=== PATIENT | male | born 1975 | race Caucasian/White ===

== ENCOUNTER 2023-09-13 09:17 | Emergency (ER) | payer BC, MEDICAID, SELFPAY ==
--- NOTE | 2023-09-13 09:20 | XR_ITS ---
WS: [id number] Exam: XR finger LT min 2V [id number] Date/Time of Exam: 09/13/2023 9:42 AM Reason For Exam: thumb; fb nail The thumb is targeted for radiographic evaluation. No fracture or bony injury identified. Soft tissue injury in the web between the first and second fin gers. IMPRESSION: 1. Soft tissue injury noted. No fracture or bony injury identified.
--- NOTE | 2023-09-13 09:21 | W.ED.UPPEXIN ---
HPI - Extremity Injury (Upper) General: Chief Complaint: Skin/Abscess/Foreign Body Stated Complaint: left hand injury,nail in thumb Time Seen by Provider: 09/13/23 09:18 Source: patient Mode of arrival: ambulatory Limitations: no limitations History of Present Illness: Patient is a nice 48-year-old male who presents to ED today for evaluation and treatment of a nail in his left thumb. Patient states he was building a house and using a nail gun when he accidentally dislodged a nail into his left volar thumb. Last tetanus is unknown. MD complaint: injury to: left and finger Onset (ago): hour(s) Other Extremity Injury: Left: fingers Other injuries: none Place: work Severity: moderate Relieving factors: none Exacerbating factors: none Context: other (puncture wound/foreign body) Associated symptoms: Reports no associated symptoms Review of Systems Musc: Reports: extremity pain (L thumb) Skin/Breast: Reports: other (foreign body/nail puncture to L thumb) Neuro: Denies: numbness in extremities or sensory changes Physical Exam Const: COMMON NORMALS: no acute distress, average body habitus, patient oriented x3, no limitations, healthy appearing, alert and well nourished Extremity: COMMON NORMALS: capillary refill normal GENERAL: Yes normal exam except as noted LEFT UPPER EXTREMITY: Yes hand & digits (foreign body/nail to L thumb) Left hand and digits: Yes neurovascular exam (normal) Hand Left Front: 1. framing nail foreign body to volar surface of L thumb; appears fairly superficial and does not appear to penetrate bone. Bleeding controlled. Minimal swelling. NV intact Neuro: COMMON NORMALS: patient oriented x3, moves all extremities, no focal motor deficits and no sensory deficits noted SENSORIUM/ORIENTATION: Yes alert Skin: NARRATIVE SKIN EXAM: puncture wound L thumb; otherwise normal exam Procedures Foreign Body Removal Site: left and hand (thumb) Description of foreign body: other (nail) Sedation/Analgesia: none Technique: manual removal Confirmed by:: direct visualization and radiograph Complications: none Neurovascular: normal distal pulse, normal capillary fill, distal light touch sensation intact, distal motor function normal and no signs of compartment syndrome Course Vital Signs: Vital signs: Vital Signs Temperature 98.1 F 09/13/23 09:24 Pulse Rate 76 09/13/23 09:36 Respiratory Rate 18 09/13/23 09:24 Blood Pressure 168/115 09/13/23 09:36 Pulse Oximetry 96 09/13/23 09:36 Oxygen Delivery Me thod Room Air 09/13/23 09:36 MDM - Extremity Injury (Upper) Medical Decision Making XR negative for bony injury. Nail was easily removed here and puncture sites were copiously irrigated. Tetanus was updated. He was given 1g IM Ancef. Wound dressed and he will be placed on antibiotics and given pain medication. Will have him follow up with orthopedics to make sure there was no tendon/nerve damage to digit/thumb. 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 Infection precautions discussed with patient. Medical Records I reviewed the patient's medical records. All radiology interpretation(s) finalized by discharge Discharge Plan Discharge Patient Disposition: Home Clinical Impression: Foreign body of skin of left thumb Condition: Stable Prescriptions: New tramadol 50 mg tablet 50 mg PO Q6H PRN (Reason: pain) Qty: 14 0RF cephalexin 500 mg capsule 500 mg PO Q6H 7 Days Qty: 28 0RF Discharge Orders: Discharge ED (Routine); Ordered 09/13/23 Ordered By: Poonam Yusuf Referrals: Jose Maria Joy MD [Primary Care Provider] - Patient Instructions: Soft Tissue Foreign Body (ED), Puncture Wound (DC), Opioid Safety, Pain Management Activity Restrictions/Additional Instructions: As we discussed continue to keep wound clean multiple times daily with warm soapy water. Fill and begin your antibiotics immediately. You may take pain medication as needed for severe pain. If [id number] medications control your discomfort I would recommend using these instead. Monitor for signs of infection such as redness, warmth, red streaking up your hand or arm, fevers, purulent drainage, worsening swelling, or increased pain. Please seek medical re-evaluation if these occur. We will have you follow-up with orthopedics. Case management should reach out to you this week to set you up with this appointment. Your medications have been escripted to [facility] pharmacy. 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
[2023-09-13 09:24] VITALS: BP 202/129; PULSE 85; RESP 18; TEMP 36.7; O2SAT 97
[2023-09-13 09:36] VITALS: BP 168/115; PULSE 76; O2SAT 96
[2023-09-13] MEDS: tetanus-dipt-pertussis 0.5 mL SDV IM (09:48)
[2023-09-13] MEDS: ceFAZolin 1,000 MG in water for injection-sterile 2.5 ML 0.01 MG IM (10:00)
[2023-09-13 10:02] VITALS: BP 170/115; PULSE 73; O2SAT 95
--- NOTE | 2023-09-13 10:03 | DCPLANNER ---
Message sent to ot=rtho for a follow up of lt thumb nail removal-
== END 2023-09-13 10:06 | disposition home or self-care (01) ==
PROVIDERS: Emergency Provider Physician Assistant; PCP Family Medicine
DX: S61.042A Puncture wound with foreign body of left thumb without damage to nail, initial encounter (principal); W29.4XXA Contact with nail gun, initial encounter; Z23 Encounter for immunization
CPT/HCPCS: 73140; 90471; 90715; 96372; 99284; J0690

== ENCOUNTER 2025-05-02 23:07 | Emergency (ER) | payer BC, MEDICAID, SELFPAY ==
[2025-05-02 23:14] VITALS: BP 192/125; PULSE 97; RESP 19; O2SAT 97
[2025-05-02 23:54] LABS: Hematocrit 41.9 % (37-53); Hemoglobin 14.30 g/dL (11.27-16.99); Mean Corpuscular HGB Conc 34.1 g/dL (30-55); Mean Corpuscular Hemoglobin 29.6 pg (27-33); Mean Corpuscular Volume 86.7 fl (82-101); Nucleated Red Blood Cells % 0 %; Platelet Count 229 10^3/cmm (157-399); Red Blood Count 4.83 10^6/uL (3.85-5.65); White Blood Count 7.62 10^3/uL (3.29-11.43)
[2025-05-03 00:06] LABS: INR 0.91 (0.8-1.2); Prothrombin Time 13.00 SECONDS (12.1-14.9)
[2025-05-03 00:07] LABS: Partial Thromboplastin Time 28.9 SECONDS (23.9-36.7)
--- NOTE | 2025-05-03 00:08 | ED_ITS ---
HPI - Wound/Laceration 2 General: Chief Complaint: Wound/Laceration Stated Complaint: post surg bleeding severe Time Seen by Provider: 05/02/25 23:11 History of Present Illness: 49-year-old male who had mouth surgery a bout a week ago. 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 It sounds like it was a fairly complicated procedure and he has some grafting implant devices. He had a cough this evening and started having some bleeding. They came immediately here. He has gauze on it and it appears to stop bleeding. Related Data Previous Rx's ?Medication ?Instructions ?Recorded tramadol 50 mg tablet 50 mg PO Q6H PRN pain #14 ta bs 09/13/23 Allergies Allergy/AdvReac Type Severity Reaction Status Date / Time No Known Allergies Allergy Verified 09/13/23 09:43 Review of Systems 2 Narrative: Constitutional symptoms: Negative except as documented in HPI. Skin symptoms: Negative except as documented in HPI. Eye symptoms: Negative except as documented in HPI. ENMT symptoms: Negative except as documented in HPI. Respiratory symptoms: Negative except as documented in HPI. Cardiovascular symptoms: Negative except as documented in HPI. Gastrointestinal symptoms: Negative except as documented in HPI. Genitourinary symptoms: Negative except as documented in HPI. Musculoskeletal symptoms: Negative except as documented in HPI. Neurologic symptoms: Negative except as documented in HPI. Psychiatric symptoms: Negative except as documented in HPI. Endocrine symptoms: Negative except as documented in HPI. Physical Exam 2 Narrative: EXAM NARRATIVE: General: Alert, no acute distress. Skin: warm and dry Head: Normocephalic Neck: Trachea midline Eye: Extraocular movements are intact. Ears, nose, mouth and throat: Oral mucosa moist Respiratory: Respirations are non-labored Musculoskeletal: Normal ROM Gastrointestinal: Abdomen does not appear distended Neurological: Alert and oriented, No focal neurological deficit observed. Psychiatric: Cooperative, appropriate mood & affect. Course 2 Vital Signs: Vital signs: Vital Signs Pulse Rate 97 05/02/25 23:14 Respiratory Rate 19 H 05/02/25 23:14 Blood Pressure 192/125 05/02/25 23:14 Pulse Oximetry 97 05/02/25 23:14 Oxygen Delivery Me thod Room Air 05/02/25 23:14 MDM - Wound/Laceration Medical Decision Making Medical decision making: Differential diagnosis including but not limited to and based on the above HPI, review of systems and physical exam: We will check some basic lab work to check his hemoglobin and his coags while I wait for pressure to achieve hemostasis. Orders placed to evaluate differential diagnosis based on the above differential, HPI and physical exam Lab Review: Laboratory results were reviewed and interpreted by myself the emergency room physician. No leukocytosis. No anemia. No renal failure. Coags are normal. I reviewed the patient's medical record. Reexamination: Patient remove the gauze and I evaluated his mouth. Definitely appears postsurgical and I do not see any active bleeding at this time. We discussed following up with his surgeon as soon as possible. Assessment and plan: Postop bleeding - Discharged home - Discussed plan with patient. Answered any questions. - Evaluation and treatment of this problem were appropriate in the emergency setting. Lab Data 05/02/25 23:46 05/02/25 23:46 Laboratory Results WBC 7.62 10^3/uL (3.29-11.43) 05/02/25 23:46 RBC 4.83 10^6/uL (3.85-5.65) 05/02/25 23:46 Hgb 14.30 g/dL (11.27-16.99) 05/02/25 23:46 Hct 41.9 % (37-53) 05/02/25 23:46 MCV 86.7 fl (82-101) 05/02/25 23:46 MCH 29.6 pg (27-33) 05/02/25 23:46 MCHC 34.1 g/dL (30-55) 05/02/25 23:46 RDW 13.0 % (12.1-15.1) 05/02/25 23:46 Plt Count 229 10^3/cmm (157-399) 05/02/25 23:46 MPV 9.6 fL (7.4-10.4) 05/02/25 23:46 Neut % (Auto) 59.4 % 05/02/25 23:46 Lymph % (Auto) 23.8 % 05/02/25 23:46 Pleasants % (Auto) 10.9 % 05/02/25 23:46 Eos % (Auto) 4.5 % 05/02/25 23:46 Baso % (Auto) 0.9 % 05/02/25 23:46 Neut # (Auto) 4.53 10^3/uL (1.8-7.7) 05/02/25 23:46 Lymph # (Auto) 1.8 10^3/uL (0.8-4.8) 05/02/25 23:46 Pleasants # (Auto) 0.8 10^3/uL (0.2-0.9) 05/02/25 23:46 Eos # (Auto) 0.3 10^3/uL (0.0-0.8) 05/02/25 23:46 Baso # (Auto) 0.1 10^3/uL (0.0-0.1) 05/02/25 23:46 Nucleated RBC % (auto) 0 % 05/02/25 23:46 Nucleated RBCs # 0.0 /100WBC 05/02/25 23:46 PT 13.00 SECONDS (12.1-14.9) 05/02/25 23:46 INR 0.91 (0.8-1.2) 05/02/25 23:46 APTT 28.9 SECONDS (23.9-36.7) 05/02/25 23:46 Sodium 137 mmol/L (136-145) 05/02/25 23:46 Potassium 3.8 mmol/L (3.5-5.1) 05/02/25 23:46 Chloride 97 mmol/L (98-107) L 05/02/25 23:46 Carbon Dioxide 28 mmol/L (22-29) 05/02/25 23:46 Anion Gap 15.8 (5-19) 05/02/25 23:46 BUN 23 mg/dL (6-20) H 05/02/25 23:46 Creatinine 1.0 mg/dL (0.7-1.2) 05/02/25 23:46 GFR Calculation 80.1 mL/min (90-130) L 05/02/25 23:46 Glucose 107 mg/dL (65-115) 05/02/25 23:46 Calculated Osmolality 288 mOsm/kg (285-295) 05/02/25 23:46 Calcium 9.3 mg/dL (8.5-10.5) 05/02/25 23:46 Total Bilirubin 0.6 mg/dL (0.15-1.2) 05/02/25 23:46 AST 15 U/L (0-40) 05/02/25 23:46 ALT 26 U/L (0-41) 05/02/25 23:46 Alkaline Phosphatase 75 U/L (40-130) 05/02/25 23:46 Total Protein 7.2 g/dL (6.6-8.7) 05/02/25 23:46 Albumin 4.0 g/dL (3.5-5.2) 05/02/25 23:46 Globulin 3.2 g/dL (1.3-4.6) 05/02/25 23:46 No radiology studies performed this visit Discharge Plan Discharge Patient Disposition: Home Clinical Impression: Post-op bleeding Condition: Stable Prescriptions: No Action tramadol 50 mg tablet 50 mg PO Q6H PRN (Reason: pain) Qty: 14 0RF Discharge Orders: Discharge ED (Routine); Ordered 05/03/25 Ordered By: Melissa Horner Referrals: Waldemar Edward DO [Primary Care Provider, [facility]] Discharge Diet: Usual diet Discharge Activity: Increase activity as tolerated Patient Instructions: Opioid Safety, Pain Management, Patient Portal & Jeff Instructions Activity Restrictions/Additional Instructions: Thank you for choosing [facility] for your healthcare needs today. You have been screened and evaluated and felt safe for discharge. Health conditions do change or evolve sometimes and as such it is important that you follow up with your Primary Doctor to be re checked, 3-5 days is a general good time frame for follow up. 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
[2025-05-03 00:11] LABS: Alanine Aminotransferase 26 U/L (0-41); Albumin Level 4.0 g/dL (3.5-5.2); Alkaline Phosphatase 75 U/L (40-130); Anion Gap 15.8 (5-19); Aspartate Amino Transferase 15 U/L (0-40); Blood Urea Nitrogen 23 mg/dL (6-20); Calcium 9.3 mg/dL (8.5-10.5); Carbon Dioxide 28 mmol/L (22-29); Chloride 97 mmol/L (98-107); Globulin 3.2 g/dL (1.3-4.6); Glucose 107 mg/dL (65-115); Osmolality Calculated 288 mOsm/kg (285-295); Potassium 3.8 mmol/L (3.5-5.1); Sodium 137 mmol/L (136-145); Total Protein 7.2 g/dL (6.6-8.7)
[2025-05-03 00:48] VITALS: BP 182/116; PULSE 65; RESP 18; O2SAT 96
--- OUTSIDE RECORDS SUMMARY | 2025-05-03 07:36 | XMS_ITS | Encounter Summary ---
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 Gender Identity Not on file Sexual Orientation Not on file documented as of this encounter Plan of Treatment Not on file documented as of this encounter Procedures Procedure Name Priority Date/Time Associated Diagnosis Comments LIPID PANEL Routine 01/23/2008 9:15 AM CDT documented in this encounter Results * LIPID PANEL (01/23/2008 9:15 AM CDT) GLUCOSE 89 70 - 110 mg/dL [facility] HDL 48 40 - 60 mg/dL [facility] CALCULATED LDL CHOLESTEROL 112 0 - 130 mg/dL [facility] TRIGLYCERIDE 54 0 - 168 mg/dL [facility] CALCULATED TOTAL CHOLESTEROL TO HDL RATIO 3.56 3.43 - 4.97 [facility] CHOLESTEROL 171 75 - 200 mg/dL [facility] Blood specimen (specimen) 01/23/2008 9:15 AM CDT 01/23/2008 3:10 PM CDT us Steven Garner MD CHEMISTRY ORDERABLES Final Res ult Performing Organization Address City/State/[facility] Co de Phone Number [facility] [address] [place] [address] documented in this encounter Visit Diagnoses Not on filedocumented in this encounter Care Teams Home Health Occupational Therapist Relationship Specialty Start Date End Date Jose Maria Joy MD [address] [place] [id number] PCP - General Family Practice 04/08/11 documented as of this encounter
--- OUTSIDE RECORDS SUMMARY | 2025-05-03 07:36 | XMS_ITS | Encounter Summary ---
Author Organization [facility] Address [address] [place] [address] Care Team Providers Care Kosher Dietary Service Manager Name Role Phone Jose Maria Joy MD Primary Care Provider + [phone] Encounter Details Date Type Department Care Team (Latest Contact Info) Description 05/18/2004 Outpatient [facility] [place] [id number] Estela Saunders MD [address] [place] [phone] OTHER MALAISE AND FATIGUE (Primary Dx) Social History Tobacco Use Types Packs/Day Years Used Date Smoking Tobacco: Never Assessed Sex and Gender Information Value Date Recorded Sex Assigned at Not on file 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
--- OUTSIDE RECORDS SUMMARY | 2025-05-03 07:36 | XMS_ITS | Clinical Summary ---
Author Organization [facility] Address [address] [place] [address] Care Team Providers Care Branch Maker Name Role Phone Jose Maria Joy MD Primary Care Provider + [phone] Allergies No known active allergies Medications No known medications Active Problems No known active problems Family History Medical History Relation Name Comments Healthy Daughter Healthy Father Healthy Mother Healthy Sister 1 Healthy Sister 2 Healthy Son Relation Name Status Comments Daughter Alive Father Alive Mother Alive Sister 1 Alive Sister 2 Alive Son Alive Social History Tobacco Use Types Packs/Day Years Used Date Smoking Tobacco: Never Smokeless Tobacco: Never Alcohol Use Standard Drinks/Week Comments No 0 (1 standard drink = 0.6 oz pur e alcohol) Sex and Gender Information Value Date Recorded Sex Assigned at Not on file Legal Sex Male 4:35 AM JEWEL WAXER Gender Identity Not on file Sexual Orientation Not on file Last Filed Vital Signs Vital Sign Reading Time Taken Comments Blood Pressure 144/92 09/14/2011 9:31 AM JEWEL WAXER Pulse 61 09/14/2011 9:31 AM JEWEL WAXER Temperature 36 C (96.8 F) 04/09/2011 3:19 PM CDT Respiratory Rate 16 04/09/2011 4:00 PM CDT Oxygen Saturation 96% 04/09/2011 4:00 PM CDT Inhaled Oxygen Concentration - - Weight 86.2 kg (190 lb) 09/14/2011 9:31 AM JEWEL WAXER Height 172.7 cm (5' 8 ) 09/14/2011 9:31 AM JEWEL WAXER Body Mass Index 28.89 09/14/2011 9:31 AM JEWEL WAXER Plan of Treatment Health Maintenance Due Date Last Done Comments DTAP/TDAP/TD VACCINES (1 - Tdap) 1996 HEPATITIS B VACCINES (1 of 3 - 19+ 3-dose series) 05/04 COLORECTAL SCREENING 2022 Colorectal Cancer Screening 2022 FIT-DNA Q 3 years 2022 FIT/FOBT Q 1 year 2022 Flex Sig/CT Colonography Q 5 years 2022 INFLUENZA VACCINE (#1) [address] [place] [address] [address] Advance Directives For more information, please contact: [phone] * Full Code (Latest Code Status on File) Date Activated Date Inactivated Comments 04/09/2011 12:40 PM 04/10/2011 2:01 AM * Full Code Date Activated Date Inactivated Comments 04/09/2011 11:29 AM 04/09/2011 12:40 PM Care Teams Branch Maker Relationship Specialty Start Date End Date Jose Maria Joy MD [address] [place] [address] PCP - General Family Practice 04/08/11
--- OUTSIDE RECORDS SUMMARY | 2025-05-03 07:36 | XMS_ITS | Encounter Summary ---
Author Organization [facility] Address [address] [place] [address] Care Team Providers Care Nuclear Process Engineer Name Role Phone Jose Maria Joy MD Primary Care Provider + [phone] Encounter Details Date Type Department Care Team (Late st Contact Info) Description 08/11/2001 Outpatient Historical [facility] [place] [facility] [address] [place] [address] Vandana Blancas, DO [address] [place] [address] 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
--- OUTSIDE RECORDS SUMMARY | 2025-05-03 07:36 | XMS_ITS | Encounter Summary ---
Author Organization [facility] Address [address] [facility] Attn: [place] [address] Care Team Providers Care Soldering Machine Feeder Name Role Phone Jose Maria Joy MD Primary Care Provider + [phone] Encounter Details Date Type Department Care Team (Late st Contact Info) Description 01/27/2006 Outpatient Historical Steven Garner MD NO ADDRESS ON FILE Social History Tobacco Use Types Packs/Day Years Used Date Smoking Tobacco: Never Assessed Sex and Gender Information Value Date Recorded Sex Assigned at Not on file 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 Gender Identity Not on file Sexual Orientation Not on file documented as of this encounter Plan of Treatment Not on file documented as of this encounter Procedures Procedure Name Priority Date/Time Associated Diagnosis Comments LIPID PANEL Routine 01/27/2006 9:33 AM CDT documented in this encounter Results * (ABNORMAL) LIPID PANEL (01/27/2006 9:33 AM CDT) CALCULATED TOTAL CHOLESTEROL TO HDL RATIO 2.93(L) 3.43 - 4.97 INTERFACE SYSTEM CHOLESTEROL 176 75 - 200 mg/dL INTERFACE SYSTEM GLUCOSE 88 70 - 110 mg/dL INTERFACE SYSTEM HDL 60 40 - 60 mg/dL INTERFACE SYSTEM LDL CALCULATED 105 0 - 130 mg/dL INTERFACE SYSTEM TRIGLYCERIDE 55 0 - 158 mg/dL INTERFACE SYSTEM 01/27/2006 9:33 AM CDT us Historical Provider CHEMISTRY ORDERABLES Final R esult INTERFACE SYSTEM Refer to clinic/hospital department documented in this encounter Visit Diagnoses Not on filedocumented in this encounter Care Teams Soldering Machine Feeder Relationship Specialty Start Date End Date Jose Maria Joy MD [address] [place] [address] PCP - General Family Practice 04/08/11 documented as of this encounter
--- OUTSIDE RECORDS SUMMARY | 2025-05-03 07:36 | XMS_ITS | Encounter Summary ---
Author Organization [facility] Address [address] [place] [address] Care Team Providers Care Preassembler And Inspector Name Role Phone Jose Maria Joy MD Primary Care Provider + [phone] Encounter Details Date Type Department Care Team (Late st Contact Info) Description 05/21/2004 Outpatient Historical [facility] [place] [phone] Svetlana Dover MD [address] [place] [phone] UNSPECIFIED VIRAL INFECTION (Primary Dx) Social History Tobacco Use Types Packs/Day Years Used Date Smoking Tobacco: Never Assessed Sex and Gender Information Value Date Recorded Sex Assigned at Not on file Legal Sex Male 4:35 AM TEST FACILITY ENGINEER Gender Identity Not on file Sexual Orientation Not on file documented as of this encounter Plan of Treatment Not on file documented as of this encounter Visit Diagnoses Diagnosis Unspecified viral infection, in conditions classified elsewhere and of unspecified site- Primary documented in this encounter Care Teams Preassembler And Inspector Relationship Specialty Start Date End Date Jose Maria Joy MD [address] [place], [place] [address] PCP - General Family Practice 04/08/11 documented as of this encounter
--- OUTSIDE RECORDS SUMMARY | 2025-05-03 07:36 | XMS_ITS | Encounter Summary ---
Author Organization [facility] Address [address] [place] [address] Care Team Providers Care Laboratory Technologist Name Role Phone Jose Maria Joy MD Primary Care Provider + [phone] Encounter Details Date Type Department Care Team (Late st Contact Info) Description 01/17/2002 Outpatient Historical [facility] [place] [address] Svetlana Dover MD [address] [place] [phone] ACUTE SINUSITIS NOS (Primary Dx); OTITIS MEDIA NOS Social History Tobacco Use Types Packs/Day Years Used Date Smoking Tobacco: Never Assessed Sex and Gender Information Value Date Recorded Sex Assigned at Not on file Legal Sex Male 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
--- OUTSIDE RECORDS SUMMARY | 2025-05-03 07:36 | XMS_ITS | Clinical Summary ---
Author Organization [facility] Address [address] Cottern: [place] [address] Care Team Providers Care Main Entree Cook And Cashier Name Role Phone Jose Maria Joy MD Primary Care Provider [phone] Allergies No known active allergies Encounters Date Type Department Care Team Description 03/20/2025 Abstract [facility] Nose [facility] Th[facility] 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) from Last 3 Months Family History Medical History Relation Name Comments [...] at Not on file Legal Sex Male 1:34 AM BUSH REGENERATOR Gender Identity Not on file Sexual Orientation Not on file Plan of Treatment Health Maintenance Due Date Last Done Comments DTAP/TDAP/TD VACCINES (1 - Tdap) 1996 HEPATITIS B VACCINES (1 of 3 - 19+ 3-dose series) 05/04 COLORECTAL SCREENING 2022 Colorectal Cancer Screening 2022 FIT-DNA Q 3 years 2022 FIT/FOBT Q 1 year 2022 Flex Sig/CT Colonography Q 5 years 2022 INFLUENZA VACCINE (#1) 2025 Insurance [employer] [place] Care Teams Main Entree Cook And Cashier Relationship Specialty Start Date End Date Jose Maria Joy MD [address] [place] [phone] PCP - General Family Practice 04/08/11
--- OUTSIDE RECORDS SUMMARY | 2025-05-03 07:36 | XMS_ITS | Encounter Summary ---
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 Gender Identity Not on file Sexual Orientation Not on file documented as of this encounter Plan of Treatment Not on file documented as of this encounter Procedures Procedure Name Priority Date/Time Associated Diagnosis Comments LIPID PANEL Routine 01/17/2007 8:49 AM CDT documented in this encounter Results * LIPID PANEL (01/17/2007 8:49 AM CDT) CHOLESTEROL 174 75 - 200 mg/dL INTERFACE SYSTEM HDL 49 40 - 60 mg/dL INTERFACE SYSTEM TRIGLYCERIDE 61 0 - 158 mg/dL INTERFACE SYSTEM GLUCOSE 88 70 - 110 mg/dL INTERFACE SYSTEM CALCULATED LDL CHOLESTEROL 113 0 - 130 mg/dL INTERFACE SYSTEM CALCULATED TOTAL CHOLESTEROL TO HDL RATIO 3.55 3.43 - 4.97 INTERFACE SYSTEM 01/17/2007 8:49 AM CDT us Steven Garner MD CHEMISTRY ORDERABLES Edited INTERFACE SYSTEM Refer to clinic/hospital department documented in this encounter Visit Diagnoses Not on filedocumented in this encounter Care Teams Research Specialist Relationship Specialty Start Date End Date Jose Maria Joy MD [address] [place] [address] PCP - General Family Practice 04/08/11 documented as of this encounter
--- OUTSIDE RECORDS SUMMARY | 2025-05-03 07:36 | XMS_ITS | Encounter Summary ---
Author Organization [facility] Address [address] [place] [address] Care Team Providers Care Meat Service Team Member Name Role Phone Jose Maria Joy MD Primary Care Provider + [phone] Encounter Details Date Type Department Care Team (Latest Contact Info) Description 10/06/2003 Outpatient Historical [facility] [place] [address] [place] [phone] Jennifer Ramirez MD [address] [phone] UNSPECIFIED VIRAL INFECTION (Primary Dx) Social History Tobacco Use Types Packs/Day Years Used Date Smoking Tobacco: Never Assessed Sex and Gender Information Value Date Recorded Sex Assigned at Not on file 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
== END 2025-05-03 00:52 | disposition home or self-care (01) ==
PROVIDERS: Emergency Provider Emergency Medicine; PCP Electrodiagnostic Medicine
DX: L76.22 Postprocedural hemorrhage of skin and subcutaneous tissue following other procedure (principal); Z98.890 Other specified postprocedural states
CPT/HCPCS: 36415; 80053; 85025; 85610; 85730; 99283; J9999